=== PATIENT | male | born 1955 | race Two or more races ===

== ENCOUNTER → 2023-06-08 | Outpatient (CLI) | payer OTHER ==
[2023-06-08 10:27] LABS: Basophils # (auto) 0 10 ^3/uL (0-0.2); Basophils % (auto) 0.7 % (0.0-2.0); Eosinophils # (auto) 0.1 10 ^3/uL (0-0.8); Eosinophils % (auto) 2.2 % (0.0-7.0); Hematocrit 38.6 % (41.0-53.0); Hemoglobin 13.4 g/dL (13.5-17.5); Lymphocytes # (auto) 1.8 10 ^3/uL (0.4-5.4); Lymphocytes % (auto) 32.1 % (10.0-50.0); Mean Corpuscular Hemoglobin 30.1 pg (28.0-32.0); Mean Corpuscular Hgb Conc. 34.6 g/dL (32.0-36.0); Mean Corpuscular Volume 86.9 fL (80.0-100.0); Monocytes # (auto) 0.4 10 ^3/uL (0-1.3); Monocytes % (auto) 6.5 % (0.0-12.0); Neutrophils # (auto) 3.2 10 ^3/uL (1.6-8.6); Neutrophils % (auto) 58.5 % (37.0-80.0); Nucleated Red Blood Cells % 0.1 %; Red Blood Cells 4.45 10^6/uL (4.5-5.90); Red Cell Distribution Width 13.8 % (11.8-14.3); White Blood Cell 5.5 10^3/uL (4.4-10.8)
[2023-06-08 11:44] LABS: Alanine Aminotransferase 19 U/L (7-40); Alkaline Phosphatase 134 U/L (46-116); Anion Gap 4 (5-15); Aspartate Aminotransferase 14 U/L (13-40); BUN/Creatinine Ratio 14.3 (10.0-20.0); Blood Urea Nitrogen 16 mg/dL (9-23); Calcium 9.3 mg/dL (8.5-10.1); Carbon Dioxide 28 mmol/L (20-30); Chloride 104 mmol/L (98-107); Glucose 197 mg/dL (74-106); LDL Cholesterol 144 mg/dL (< 100); Potassium 4.6 mmol/L (3.5-5.1); Sodium 136 mmol/L (136-145); Triglycerides 202 mg/dL (< 150)
[2023-06-08 11:45] LABS: Albumin 4.6 g/dL (3.2-4.8); Bilirubin, Total 0.6 mg/dL (0.2-1.0); Cholesterol 210 mg/dL (< 200); HDL Cholesterol 37 mg/dL (40-59); Total Protein 7.4 g/dL (5.7-8.2)
[2023-06-08 11:48] LABS: Folate (Folic Acid) 15.61 ng/mL (>5.38)
[2023-06-08 12:28] LABS: Uric Acid 6.9 mg/dL (3.7-9.2)
[2023-06-08 12:30] LABS: Magnesium 1.7 mg/dL (1.6-2.6)
[2023-06-09 11:15] LABS: Urine Bacteria FEW /hpf (None Seen); Urine Blood Negative /uL (Negative); Urine Clarity Clear (Clear); Urine Protein, UAD Negative (Negative); Urine Urobilinogen Normal (Negative); Urine WBC 1 /hpf (0 - 3); Urine pH 6.5 (5.0-8.0)
[2023-06-09 11:16] LABS: Urine Color Straw (Yellow)
== END | disposition home or self-care (01) ==
LOC: LAB 09:58
PROVIDERS: ATTEND Internal Medicine
DX: E61.2 Magnesium deficiency (principal); R78.89 Finding of other specified substances, not normally found in blood; E78.9 Disorder of lipoprotein metabolism, unspecified; R68.89 Other general symptoms and signs; R94.6 Abnormal results of thyroid function studies; E79.0 Hyperuricemia without signs of inflammatory arthritis and tophaceous disease; E85.9 Amyloidosis, unspecified; R82.90 Unspecified abnormal findings in urine; R82.991 Hypocitraturia; R82.79 Other abnormal findings on microbiological examination of urine; D51.9 Vitamin B12 deficiency anemia, unspecified
CPT/HCPCS: 36415; 80053; 80061; 81001; 82306; 82607; 82746; 83036; 83735; 84443; 84550; 85025; 87086

== ENCOUNTER 2023-11-15 14:48 | Inpatient (IN) | payer OTHER ==
[~2023-11-15] VITALS: Ht 175.3 cm; Wt 94.0 kg
[2023-11-15] MEDS: SODIUM CHLORIDE 0.9% 1,000 ML IVB ONE (15:12)
[2023-11-15 15:17] LABS: Basophils # (auto) 0 10 ^3/uL (0-0.2); Basophils % (auto) 0.6 % (0.0-2.0); Eosinophils # (auto) 0.1 10 ^3/uL (0-0.8); Eosinophils % (auto) 1.3 % (0.0-7.0); Hematocrit 40.2 % (41.0-53.0); Hemoglobin 13.6 g/dL (13.5-17.5); Lymphocytes % (auto) 36.3 % (10.0-50.0); Mean Corpuscular Hgb Conc. 33.8 g/dL (32.0-36.0); Mean Corpuscular Volume 85.8 fL (80.0-100.0); Monocytes # (auto) 0.4 10 ^3/uL (0-1.3); Neutrophils # (auto) 3.1 10 ^3/uL (1.6-8.6); Neutrophils % (auto) 54.8 % (37.0-80.0); Red Blood Cells 4.68 10^6/uL (4.5-5.90); Red Cell Distribution Width 14.5 % (11.8-14.3); White Blood Cell 5.6 10^3/uL (4.4-10.8)
[2023-11-15 15:36] LABS: Alanine Aminotransferase 21 U/L (7-40); Albumin 4.6 g/dL (3.2-4.8); Alkaline Phosphatase 85 U/L (46-116); Anion Gap 10 (5-15); Aspartate Aminotransferase 16 U/L (13-40); BUN/Creatinine Ratio 17.3 (10.0-20.0); Bilirubin, Total 0.8 mg/dL (0.2-1.0); Blood Urea Nitrogen 24 mg/dL (9-23); Carbon Dioxide 24 mmol/L (20-30); Chloride 104 mmol/L (98-107); Glucose 249 mg/dL (74-106); Magnesium 1.7 mg/dL (1.6-2.6); Potassium 3.9 mmol/L (3.5-5.1); Sodium 138 mmol/L (136-145); Total Protein 7.2 g/dL (5.7-8.2)
[2023-11-15 15:37] LABS: INR 1.03 (0.9-1.15); Partial Thromboplastin Time 22.5 SEC (24.5-34.5); Prothrombin Time 10.9 sec (9.3-11.8)
[2023-11-15 16:09] LABS: Lactic Acid w/Reflex 3.4 mmol/L (0.4-2.0)
[2023-11-15 19:38] VITALS: RESP 20; O2SAT 96
[2023-11-15 20:00] VITALS: PULSE 72; RESP 18; O2SAT 94
[2023-11-15] MEDS ORDERED: NAP500T PO (22:37)
[2023-11-15] MEDS ORDERED: ROSU10TA64 PO (22:37)
[2023-11-15] MEDS ORDERED: DULO1CAP6 PO (22:37)
[2023-11-15] MEDS: cefTRIAXone 1GM/50ML D5W 50 ML IV ONE (22:43)
[2023-11-15] MEDS: SODIUM CHLORIDE 0.9% 1,000 ML IV SCH (22:45)
[2023-11-15 23:02] LABS: Triglycerides 248 mg/dL (< 150)
[2023-11-15 23:03] LABS: LDL Cholesterol 173 mg/dL (< 100)
[2023-11-15 23:04] LABS: Cholesterol 255 mg/dL (< 200); HDL Cholesterol 42 mg/dL (40-59)
[2023-11-16 04:52] LABS: Urine Bacteria FEW /hpf (None Seen); Urine Blood Negative /uL (Negative); Urine Budding Yeast OCCASIONAL /hpf (None Seen); Urine Clarity Clear (Clear); Urine Color Yellow (Yellow); Urine Hyaline Cast FEW /lpf (0 - 2); Urine Mucus FEW (None Seen); Urine Protein, UAD Negative (Negative); Urine Specific Gravity 1.017 (1.001-1.035); Urine Urobilinogen Normal (Negative); Urine WBC 1 /hpf (0 - 3)
[2023-11-16 04:54] LABS: Basophils # (auto) 0 10 ^3/uL (0-0.2); Basophils % (auto) 0.4 % (0.0-2.0); Eosinophils # (auto) 0.1 10 ^3/uL (0-0.8); Eosinophils % (auto) 0.7 % (0.0-7.0); Hematocrit 38.6 % (41.0-53.0); Lymphocytes % (auto) 23.1 % (10.0-50.0); Mean Corpuscular Hemoglobin 29.4 pg (28.0-32.0); Mean Corpuscular Hgb Conc. 33.6 g/dL (32.0-36.0); Mean Corpuscular Volume 87.5 fL (80.0-100.0); Monocytes # (auto) 0.5 10 ^3/uL (0-1.3); Monocytes % (auto) 6.4 % (0.0-12.0); Neutrophils # (auto) 5.9 10 ^3/uL (1.6-8.6); Neutrophils % (auto) 69.4 % (37.0-80.0); Red Blood Cells 4.41 10^6/uL (4.5-5.90); Red Cell Distribution Width 14.5 % (11.8-14.3); White Blood Cell 8.5 10^3/uL (4.4-10.8)
[2023-11-16 04:55] LABS: Amphetamine Screen, Urine Neg (NEGATIVE); Barbiturate Scree,Urine Neg (NEGATIVE); Benzodiazephine Screen, Urine Neg (NEGATIVE); Cocaine Screen, Urine Neg (NEGATIVE); Opiate Scree,Urine Neg (NEGATIVE); Phencyclidine Screen, Urine Neg (NEGATIVE)
[2023-11-16 04:56] LABS: Cannabinoid Screen, Urine Neg (NEGATIVE)
[2023-11-16 05:02] LABS: Anion Gap 9 (5-15); Carbon Dioxide 20 mmol/L (20-30); Chloride 108 mmol/L (98-107); Potassium 3.5 mmol/L (3.5-5.1); Sodium 137 mmol/L (136-145)
[2023-11-16 05:03] LABS: Calcium 9.4 mg/dL (8.7-10.4)
[2023-11-16 05:08] LABS: BUN/Creatinine Ratio 15.4 (10.0-20.0); Blood Urea Nitrogen 16 mg/dL (9-23); Glucose 189 mg/dL (74-106)
[2023-11-16] MEDS ORDERED: PATIENTS OWN MEDICATION (Rosuvastatin Calcium 1 TAB) PO SCH (10:00)
[2023-11-16] MEDS: DULoxetine HCL 30 MG CAP PO SCH (10:20)
[2023-11-16] MEDS: ENOXAPARIN SOD 30 MG/0.3 ML SYRINGE SC SCH (10:21)
[2023-11-16 11:17] LABS: CRP High Sensitivity 0.66 mg/dL (<1.0)
[2023-11-16 11:18] LABS: Phosphorus 3.1 mg/dL (2.4-5.1)
[2023-11-16 12:00] VITALS: BP 150/77; RESP 12; TEMP 97.8; O2SAT 96
[2023-11-16 12:37] LABS: Magnesium 1.7 mg/dL (1.6-2.6)
[2023-11-16] MEDS: ERGOCALCIFEROL 50,000 UNIT(1.25MG) CAP PO SCH (14:15)
[2023-11-16] MEDS: NAPROXEN 500 MG TAB PO PRN (18:22)
[2023-11-16 18:25] VITALS: PULSE 86
[2023-11-16] MEDS ORDERED: cefTRIAXone 1GM/50ML D5W 50 ML IV SCH (21:00)
[2023-11-16] MEDS ORDERED: ATORVASTATIN 20 MG TAB PO SCH (22:00)
== END 2023-11-16 19:00 | disposition left against medical advice (07) | DRG 871 ==
LOC: ER 14:48 → TELE 22:28
PROVIDERS: ADMIT Internal Medicine; ATTEND Internal Medicine
DX: A41.9 Sepsis, unspecified organism (principal); G93.41 Metabolic encephalopathy; N17.0 Acute kidney failure with tubular necrosis; E78.5 Hyperlipidemia, unspecified; F32.A Depression, unspecified; G89.29 Other chronic pain; E86.0 Dehydration; E66.9 Obesity, unspecified; I44.0 Atrioventricular block, first degree; Z53.29 Procedure and treatment not carried out because of patient's decision for other reasons; I44.4 Left anterior fascicular block; I45.10 Unspecified right bundle-branch block; Z68.30 Body mass index [BMI] 30.0-30.9, adult; Z79.899 Other long term (current) drug therapy
CPT/HCPCS: 36415; 70450; 70551; 71045; 72158; 80048; 80053; 80061; 80307; 81001; 82140; 82306; 82607; 83605; 83735; 84100; 84443; 84484; 85025; 85379; 85610; 85730; 86141; 87040; 87086; 93306; 93886; 96361; 96365; G0378

== ENCOUNTER → 2024-01-01 | Outpatient (CLI) | payer OTHER ==
[~2024-01-01] MED LIST: DULO1CAP6 PO; NAP500T PO; ROSU10TA64 PO
[2024-01-01 12:39] LABS: Basophils # (auto) 0 10 ^3/uL (0-0.2); Basophils % (auto) 0.6 % (0.0-2.0); Eosinophils # (auto) 0.1 10 ^3/uL (0-0.8); Eosinophils % (auto) 2.3 % (0.0-7.0); Hematocrit 39.2 % (41.0-53.0); Hemoglobin 13.8 g/dL (13.5-17.5); Lymphocytes # (auto) 1.9 10 ^3/uL (0.4-5.4); Lymphocytes % (auto) 34.7 % (10.0-50.0); Mean Corpuscular Hemoglobin 30.4 pg (28.0-32.0); Mean Corpuscular Hgb Conc. 35.3 g/dL (32.0-36.0); Mean Corpuscular Volume 86.1 fL (80.0-100.0); Monocytes # (auto) 0.4 10 ^3/uL (0-1.3); Monocytes % (auto) 6.6 % (0.0-12.0); Neutrophils # (auto) 3.1 10 ^3/uL (1.6-8.6); Neutrophils % (auto) 55.8 % (37.0-80.0); Red Blood Cells 4.55 10^6/uL (4.5-5.90); White Blood Cell 5.5 10^3/uL (4.4-10.8)
[2024-01-01 13:00] LABS: INR 1.03 (0.9-1.15); Partial Thromboplastin Time 26.9 SEC (24.5-34.5); Prothrombin Time 10.9 sec (9.3-11.8)
[2024-01-01 13:16] LABS: Alanine Aminotransferase 18 U/L (7-40); Albumin 4.6 g/dL (3.2-4.8); Alkaline Phosphatase 91 U/L (46-116); Anion Gap 4 (5-15); Blood Urea Nitrogen 21 mg/dL (9-23); Calcium 9.7 mg/dL (8.5-10.1); Carbon Dioxide 29 mmol/L (20-30); Chloride 104 mmol/L (98-107); Glucose 200 mg/dL (74-106); LDL Cholesterol 155 mg/dL (< 100); Magnesium 1.6 mg/dL (1.6-2.6); Potassium 4.1 mmol/L (3.5-5.1); Sodium 137 mmol/L (136-145); Triglycerides 171 mg/dL (< 150)
[2024-01-01 13:17] LABS: Aspartate Aminotransferase 10 U/L (13-40); Bilirubin, Total 0.7 mg/dL (0.2-1.0); Cholesterol 217 mg/dL (< 200); HDL Cholesterol 39 mg/dL (40-59); Total Protein 7.5 g/dL (5.7-8.2)
[2024-01-01 13:36] LABS: Folate (Folic Acid) 34.44 ng/mL (>5.38)
[2024-01-01 13:49] LABS: Uric Acid 5.2 mg/dL (3.7-9.2)
[2024-01-04 10:06] LABS: Urine Bacteria FEW /hpf (None Seen); Urine Blood Negative /uL (Negative); Urine Clarity Clear (Clear); Urine Color Yellow (Yellow); Urine Protein, UAD TRACE (Negative); Urine Specific Gravity 1.024 (1.001-1.035); Urine Urobilinogen 2 mg/dL (Negative); Urine WBC 3 /hpf (0 - 3)
== END | disposition home or self-care (01) ==
LOC: LAB 12:05
PROVIDERS: ATTEND Internal Medicine
DX: Z01.812 Encounter for preprocedural laboratory examination (principal); E11.9 Type 2 diabetes mellitus without complications; Z68.29 Body mass index [BMI] 29.0-29.9, adult; Z79.899 Other long term (current) drug therapy; Z98.890 Other specified postprocedural states; Z86.2 Personal history of diseases of the blood and blood-forming organs and certain disorders involving the immune mechanism
CPT/HCPCS: 36415; 80053; 80061; 81001; 82306; 82607; 82746; 83036; 83735; 84443; 84550; 85025; 85610; 85730; 87086

== ENCOUNTER → 2024-04-27 | Outpatient (CLI) | payer OTHER ==
[2024-04-27 12:26] LABS: Alanine Aminotransferase 18 U/L (7-40); Albumin 4.4 g/dL (3.2-4.8); Alkaline Phosphatase 95 U/L (46-116); Anion Gap 6 (5-15); Aspartate Aminotransferase 14 U/L (13-40); BUN/Creatinine Ratio 17.9 (10.0-20.0); Bilirubin, Total 0.7 mg/dL (0.2-1.0); Blood Urea Nitrogen 19 mg/dL (9-23); Calcium 10.1 mg/dL (8.7-10.4); Carbon Dioxide 28 mmol/L (20-31); Chloride 102 mmol/L (98-107); Cholesterol 203 mg/dL (< 200); Glucose 216 mg/dL (74-106); HDL Cholesterol 40 mg/dL (40-59); LDL Cholesterol 130 mg/dL (< 100); Potassium 4.4 mmol/L (3.5-5.1); Sodium 136 mmol/L (136-145); Total Protein 7.4 g/dL (5.7-8.2); Triglycerides 194 mg/dL (< 150)
[2024-04-27 12:39] LABS: Folate (Folic Acid) 44.83 ng/mL (>5.38)
[2024-04-27 12:47] LABS: Uric Acid 5.5 mg/dL (3.7-9.2)
[2024-04-28 09:06] LABS: Urine Blood Negative /uL (Negative); Urine Clarity Clear (Clear); Urine Color Colorless (Yellow); Urine Protein, UAD Negative (Negative); Urine Specific Gravity 1.011 (1.001-1.035); Urine Urobilinogen Normal (Negative); Urine WBC <1 /hpf (0 - 3); Urine pH 6.5 (5.0-9.0)
[2024-04-28 11:05] LABS: Urine Bacteria FEW /hpf (None Seen)
== END | disposition home or self-care (01) ==
LOC: LAB 10:34
PROVIDERS: ATTEND Internal Medicine
DX: I10 Essential (primary) hypertension (principal); E11.9 Type 2 diabetes mellitus without complications; E78.2 Mixed hyperlipidemia
CPT/HCPCS: 36415; 80053; 80061; 81001; 82306; 82607; 82746; 83036; 84443; 84550; 87086

== ENCOUNTER 2025-03-28 10:24 | Outpatient (CLI) | payer OTHER ==
[2025-03-28 11:30] LABS: Hematocrit 39.1 % (41.0-53.0); Hemoglobin 13.6 g/dL (13.5-17.5); Mean Corpuscular Hemoglobin 29.9 pg (28.0-32.0); Mean Corpuscular Volume 85.8 fL (80.0-100.0); Nucleated Red Blood Cells % 0.0 %
[2025-03-28 11:38] LABS: Alanine Aminotransferase 19 U/L (7-40); Albumin 4.4 g/dL (3.2-4.8); Alkaline Phosphatase 93 U/L (46-116); Anion Gap 9 (5-15); BUN/Creatinine Ratio 15.4 (10.0-20.0); Blood Urea Nitrogen 16 mg/dL (9-23); Calcium 9.0 mg/dL (8.7-10.4); Carbon Dioxide 28 mmol/L (20-31); Chloride 101 mmol/L (98-107); Magnesium 1.7 mg/dL (1.6-2.6); Potassium 4.2 mmol/L (3.5-5.1); Sodium 138 mmol/L (136-145); Total Protein 7.3 g/dL (5.7-8.2); Uric Acid 6.7 mg/dL (3.7-9.2)
[2025-03-28 11:40] LABS: Glucose 198 mg/dL (74-106)
[2025-03-28 12:13] LABS: Bilirubin, Total 0.6 mg/dL (0.2-1.0)
[2025-03-28 19:13] LABS: Cholesterol 217 mg/dL (< 200); HDL Cholesterol 35 mg/dL (40-59); Triglycerides 226 mg/dL (< 150)
[2025-03-29 11:50] LABS: Urine Protein, UAD Negative (Negative)
[2025-03-29 13:13] LABS: Microalb/Creat Ratio, Urine 13.0
== END 2025-03-28 17:00 | disposition home or self-care (01) ==
LOC: LAB 10:24
PROVIDERS: ATTEND Internal Medicine
DX: E11.9 Type 2 diabetes mellitus without complications (principal); E78.49 Other hyperlipidemia; E61.2 Magnesium deficiency; E79.89 Other specified disorders of purine and pyrimidine metabolism; E79.0 Hyperuricemia without signs of inflammatory arthritis and tophaceous disease; E55.9 Vitamin D deficiency, unspecified; D51.9 Vitamin B12 deficiency anemia, unspecified; R82.79 Other abnormal findings on microbiological examination of urine; R82.90 Unspecified abnormal findings in urine; R82.998 Other abnormal findings in urine; R94.6 Abnormal results of thyroid function studies; R68.89 Other general symptoms and signs
CPT/HCPCS: 36415; 80053; 80061; 81001; 82043; 82306; 82570; 82607; 82746; 83036; 83735; 84443; 84480; 84550; 85025